=== PATIENT | male | born 1975 ===

== ENCOUNTER 2019-02-25 12:19 | Emergency (ER) | payer OTHER ==
[2019-02-25 12:37] VITALS: BP 117/71; PULSE 65; RESP 14; TEMP 97.7; O2SAT 98
--- NOTE | 2019-02-25 12:50 | ED PDOC ---
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 He reports immediate pain, associated with some swelling and bruising, but did not take any medications prior to arrival. Denies numbness and tingling. Right hand dominant PMD: Heather Jordan Past Medical History Reviewed: Historical Data, Nursing Documentation, Vital Signs Vital Signs: Last Vital Signs Temp 97.7 F 02/25/19 12:36 Pulse 65 02/25/19 12:36 Resp 14 02/25/19 12:36 BP 117/71 02/25/19 12:36 Pulse Ox 98 02/25/19 12:36 - Medical History PMH: No Chronic Diseases - Surgical History Surgical History: No Surg Hx - Family History Family History: States: Unknown Family Hx - Living Arrangements Living Arrangements: With Family - Social History Current smoker - smoking cessation education provided: No Alcohol: None Drugs: Denies - Home Medications Home Medications: Ambulatory Orders Medication Instructions Recorded Ibuprofen [Motrin Tab] 600 mg PO Q8 #20 tab 02/25/19 - Allergies Allergies/Adverse Reactions: Allergies Allergy/AdvReac Type Severity Reaction Status Date / Time No Known Allergies Allergy Verified 02/25/19 12:35 Review of Systems ROS Statement: Except As Marked, All Systems Reviewed And Found Negative Musculoskeletal: Positive for: Hand Pain (right) Neurological: Negative for: Numbness (or tingling) Physical Exam - Reviewed Nursing Documentation Reviewed: Yes Vital Signs Reviewed: Yes - Physical Exam Comments: GENERAL APPEARANCE: Patient is awake, alert, oriented x 3, in no acute distress. SKIN: Warm, dry; (-) cyanosis. RESPIRATORY: breath sounds equal bilaterally. HEART AND CARDIOVASCULAR: (-) irregularity; regular rate and rhythm. RIGHT UPPER EXTREMITY: (+) tenderness to 2nd and 3rd metacarpals with swelling and ecchymosis to palmar and dorsal surface of hand. Decreased press technician strength to hand secondary to pain, (-) deformity, (-) break in skin integrity. Capillary refill and sensation intact. radial pulses 2+. Remainder of upper extremity: (-) tenderness, (-) deformity. NEURO AND PSYCH: Mental status as above. - ECG O2 Sat by Pulse Oximetry: 98 (RA) Pulse Ox Interpretation: Normal Medical Decision Making Medical Decision Making: Initial Impression: right hand injury, r/o fracture Time: 1243 Initial Plan: --Ibuprofen 600mg PO --Apply ice --Right hand XR --Reevaluate 1415 XR read as no acute fracture or dislocation by Joyce NOVAK. Patient informed that if there are any discrepancies in the official read, he will be notified within 24 hours. For now, patient to be placed in rosa wrap and discussed crush type injury precautions with him. He verbalized agreement and understanding of treatment and plan. Stable for discharge at this time with all questions answered. Pt's again provided translation Discussed results, diagnosis, treatment, return precautions and f/u with pt who is understanding, in agreement and stable for dc Xr radiology report reviewed by me,as below PROCEDURE: Right Hand Radiographs. HISTORY: crush injury, pain and swelling to 2-3 metacarpals COMPARISON:None. TECHNIQUE: 3 views obtained. FINDINGS: BONES: Normal. No fracture. JOINTS: Normal. No osteoarthritic changes. SOFT TISSUES: Normal. OTHER FINDINGS: None. IMPRESSION: Normal right hand radiographs. Scribe Attestation: Documented by Yudith Mcknight acting as a scribe for Landon Cook PA-C. Provider Scribe Attestation: All medical record entries made by the Scribe were at my direction and personally dictated by me. I have reviewed the chart and agree that the record accurately reflects my personal performance of the history, physical exam, medical decision making, and the department course for this patient. I have also personally directed, reviewed, and agree with the discharge instructions and disposition. Disposition - Clinical Impression Clinical Impression: Crushing injury of hand, right - Patient ED Disposition Is Patient to be Admitted: No Counseled Patient/Family Regarding: Studies Performed, Diagnosis, Need For Followup, Rx Given - Disposition Referrals: workers, comp [Other] Disposition: Routine/Home Disposition Time: 14:20 Condition: STABLE Additional Instructions: Niels por dejarnos cuidar de ti hoy. Usted fue tratado por julius lesin por aplastamiento de españa mano. Descansa, hielo y eleva tu mano. Use julius envoltura rosa para la compresin. Slinger ibuprofeno para el dolor y la hinchazn. Por favor cristopher un seguimiento con michael trabajadores comp. La atencin mdica de emergencia que recibi hoy se dirigi a michael sntomas agudos. Si le recetaron algn medicamento, llnelo y tmelo segn las indicaciones. Los sntomas pueden tardar varios ramírez en resolverse. Regrese al Departamento de Emergencias si michael sntomas empeoran, no mejoran o si tiene otros problemas. Comunquese con españa mdico dentro de 2 ramírez para julius nueva evaluacin y cristopher un seguimiento o llame a jonathan de los mdicos / clnicas a los que frazier sido referido y que figuran en el formulario de Informacin de visita al paciente que se incluye en españa paquete de [place]. Lleve todos los documentos que recibi al momento del sumaya junto con los medicamentos que est tomando para españa visita de seguimiento. Nuestro tratamiento no puede reemplazar la atencin mdica continua por parte de un proveedor de atencin primaria (PCP) fuera del departamento de emergencias. Thank you for letting us take care of you today. You were treated for a crush injury of your hand. Rest, ice and elevate your hand. Wear rosa wrap for compression. Take Ibuprofen for pain and swelling. Please follow up with your workers comp. The emergency medical care you received today was directed at your acute symptoms. If you were prescribed any medication, please fill it and take as directed. It may take several days for your symptoms to resolve. Return to the Emergency Department if your symptoms worsen, do not improve, or if you have any other problems. Please contact your doctor in 2 days for re-evaluation and follow up / or call one of the physicians/clinics you have been referred to that are listed on the Patient Visit Information form that is included in your discharge packet. Bring any paperwork you were given at discharge with you along with any medications you are taking to your follow up visit. Our treatment cannot replace ongoing medical care by a primary care provider (PCP) outside of the emergency department. Prescriptions: Ibuprofen [Motrin Tab] 600 mg PO Q8 #20 tab Instructions: Crush Injury (DC) Forms: [employer] (Yemeni), [facility] ED School/Work Excuse Print Language: PRYDEINIG - POA Present On Arrival: None
--- NOTE | 2019-02-25 14:41 | RAD ---
PROCEDURE: Right Hand Radiographs. HISTORY: crush injury, pain and swelling to 2-3 metacarpals COMPARISON: None. TECHNIQUE: 3 views obtained. FINDINGS: BONES: Normal. No fracture. JOINTS: Normal. No osteoarthritic changes. SOFT TISSUES: Normal. OTHER FINDINGS: None. IMPRESSION: Normal right hand radiographs.
== END 2019-02-25 14:35 | disposition home or self-care (01) ==
LOC: H.ER 12:19
DX: S69.91XA Unspecified injury of right wrist, hand and finger(s), initial encounter (principal); W23.0XXA Caught, crushed, jammed, or pinched between moving objects, initial encounter; Y99.0 Civilian activity done for income or pay